=== PATIENT | female | born 1975 | race Caucasian/White ===

== ENCOUNTER 2023-12-31 15:21 | Emergency (ER) | payer MEDICAID, SELFPAY ==
--- NOTE | 2023-12-31 15:32 | XR_ITS ---
FINAL REPORT CLINICAL HISTORY: 2nd toe injury; today FINDINGS: RIGHT FOOT 3 views of the right foot were obtained. There a questionable nondisplaced fracture of the distal second proximal phalanx. Visualized joint spaces are normally aligned. Soft tissues are unremarkable. IMPRESSION: Questionable nondisplaced fracture of the distal second proximal phalanx. Reviewed, Interpreted and Dictated by Burke Menjivar MD Transcribed by Jane Soliz Authenticated and [facility]
[2023-12-31 15:36] VITALS: BP 180/114; PULSE 90; RESP 16; TEMP 36.9; O2SAT 98; BMI 30.4
--- NOTE | 2023-12-31 15:36 | HMH.EDGENADL ---
Discharge Plan Disposition Patient Disposition: Home, Self-Care Condition: Fair Prescriptions Prescriptions: No Action Ozempic 1 mg/dose (4 mg/3 mL) Pen Injector 1 mg SQ WEEKLY Referrals Follow up/Referrals: Rachelle Stanford APRN [Primary Care Provider] - See instructions Jaclyn Ramirez DPM [Staff Physician] - See instructions Activity Restrictions/Add. Instructions Additional Instructions/Restrictions: You were evaluated in the ER today for toe pain. Your toe has a small nondisplaced fracture or broken bone. Please follow up with podiatry. Take tylenol and ibuprofen at home as needed for pain. Ice and elevate your foot to reduce swelling. Leave bossman tape in place and use your hard sole shoe when walking. Clinical Impressions Clinical Impression: Closed fracture of phalanx of right second toe Stand Alone Forms Stand Alone Forms: Work/School Release Instructions Patient Instructions: DI for Toe Fracture Print Language Print Language: Cymro Discharge ED Provider: Rachelle Arceo General Adult HPI General Chief complaint: Extremity Injury, Lower Stated complaint: AO 12/30 right second toe swelling bruising pain Time Seen by Provider: 12/31/23 15:31 History of Present Illness HPI narrative: This patient is a 48-year-old female with a history of type 2 diabetes and peripheral neuropathy presenting to the emergency department for evaluation with concern for right second toe pain. She states that she works at a daycare, and this morning she tripped, stubbing her right foot second toe. She initially did not note how bad it was, but then she looked at her toe this afternoon and noticed that it was black and blue. She states it has been hurting, and she took some Tylenol around noon. No other concerns or complaints noted at this time. Related Data Home Medications ?Medication ?Instructions ?Recorded ?Confirmed semaglutide 1 mg/dose (4 mg/3 mL) 1 mg SQ WEEKLY 12/31/23 12/31/23 subcutaneous pen injector (Ozempic) Allergies Allergy/AdvReac Type Severity Reaction Status Date / Time erythromycin base Allergy Verified 12/31/23 15:34 lisinopril Allergy Verified 12/31/23 15:34 sulfamethoxazole Allergy Verified 12/31/23 15:34 [From Bactrim] trimethoprim [From Bactrim] Allergy Verified 12/31/23 15:34 [facility] Disclaimer: The information contained in this section may have been updated after the patient was seen, as this information can be updated by other users. Medical History Diabetes mellitus type 2 in nonobese Neuropathy Surgical History History of hysterectomy History of cholecystectomy Family History Other No significant family history Social History Smoking Status: Former smoker alcohol intake: never current occupational status: employed Travel in the last 8 weeks: None ROS Obtained: Yes All systems reviewed & no additional complaints except as documented Physical Exam General General appearance: alert and in no apparent distress Head Head exam: atraumatic and normocephalic Eye Eye exam: Present normal appearance, PERRL and EOMI ENT ENT exam: Present normal exam, normal oropharynx, mucous membranes moist and normal external ear exam Neck Neck exam: Present normal inspection, full ROM and trachea midline; Absent tenderness Chest Chest inspection: Present normal inspection and symmetric chest wall rise; Absent tenderness Respiratory Respiratory exam: Present normal lung sounds bilaterally; Absent respiratory distress, wheezes, stridor or accessory muscle use Cardiovascular Cardiovascular exam: Present regular rate and normal rhythm Abdominal Exam Abdominal exam: Present soft; Absent distention, tenderness or guarding Extremities Exam Extremities exam: Present full ROM, tenderness (R 2nd toe) and normal capillary refill; Absent edema Expanded Lower Extremity Exam Right: Foot/toe exam: Present tenderness Top foot image: 1. bruising, TTP; NVI distally Back Exam Back exam: Present normal inspection and full ROM; Absent tenderness Neurological Exam Neurological exam: Present alert, oriented X3, CN II-XII intact and normal gait; Absent motor sensory deficit Psychiatric Psychiatric exam: Present normal affect and normal mood Skin Skin exam: Present warm and dry Medical Decision Making Medical Records Medical records reviewed: Yes I reviewed the patient's medical records. Harpreet Inquiry Pt receiving controlled substance: No Vital Signs: 12/31/23 15:36 12/31/23 16:09 12/31/23 16:58 Temperature 98.5 F 98.5 F Temperature Source Oral Pulse Rate 103 H 97 H Pulse Rate [Right Brachial] 90 Respiratory Rate 16 18 Blood Pressure 141/114 H 146/99 H Blood Pressure [Right Arm] 180/114 H Blood Pressure Mean [Right Arm] 136 Blood Pressure Source Automatic Cuff Blood Pressure Source [Right Arm] Automatic Cuff Blood Pressure Position Sitting Blood Pressure Position [Right Arm] Sitting 02 Sat by Pulse Oximetry 98 97 Oxygen Delivery Method Room Air Room Air Room Air Lab Data Lab results reviewed: Yes I reviewed the patient's lab results. Orders (Tests/Meds): ED MEDICATIONS Discontinued Medications Generic Name Dose Route Start Last Admin Trade Name Lucia PRN Reason Stop Dose Admin Acetaminophen 1,000 mg 12/31/23 15:34 12/31/23 15:37 Acetaminophen 500mg Tab PO 12/31/23 15:35 1,000 mg ONCE ONE Administration ORDERS Category Date Time Status Foot XR right minimum 3 views [XR foot RT min 3V] Stat Exams 12/31/23 15:32 Taken Medical Decision Narrative: In summary, this patient is a 48-year-old female presenting to the Emergency Department for evaluation of right second toe injury. Differential diagnoses considered include but are not limited to fracture, contusion, strain/sprain. Ruling out the most morbid conditions drove assessment. It should be noted patient's history includes diabetes and peripheral neuropathy which may or may not be at goal therapy. This complicates all aspects of care by increasing patient's risk for morbidity. On exam, the patient is well-appearing. She has bruising and tenderness to her right second toe but no open wounds. Neurovascularly intact. Workup included x-rays of the right foot. She was given oral Tylenol for pain. I independently interpreted x-ray prior to the radiologist read and noted subtle fracture of the distal phalanx of the right second toe. Please see their read for final interpretation. At this time, I feel the patient is appropriate for discharge home with bossman taping and [place] shoe. This was necessary for immobilization of fracture and control of pain. She was given instructions for follow-up with podiatry, as she is high risk for poor healing in the setting of diabetes and neuropathy. She was given instructions for supportive management and strict return precautions. She was discharged after all questions were answered Critical Care Critical Care Time Critical Care Time: No
[2023-12-31] MEDS: ACETAMINOPHEN 500MG TAB 1000 MG PO (15:37)
[2023-12-31 16:09] VITALS: BP 141/114; PULSE 103; O2SAT 97
[2023-12-31 16:58] VITALS: BP 146/99; PULSE 97; RESP 18; TEMP 36.9; O2SAT 97
== END 2023-12-31 16:59 | disposition home or self-care (01) ==
PROVIDERS: Emergency Provider Emergency Medicine; PCP Nurse Practitioner Family
DX: S92.501A Displaced unspecified fracture of right lesser toe(s), initial encounter for closed fracture (principal); W22.8XXA Striking against or struck by other objects, initial encounter
CPT/HCPCS: 73630; 99283

== ENCOUNTER 2024-02-04 13:26 | Outpatient (CLI) | payer OTHER, SELFPAY ==
--- NOTE | 2024-02-04 13:32 | XR_ITS ---
FINAL REPORT CLINICAL HISTORY: Questionable fracture x 1 month ago COMPARISON: 12/31/2023 FINDINGS: RIGHT FOOT Three views show periosteal reaction and callus formation in the second proximal phalanx. This is presumably related to a healed fracture although no fracture line is evident. If there is concern for infection, osteomyelitis would be included in the differential. No acute fracture is seen. IMPRESSION: Periosteal presumably due to a healed fracture in the second proximal phalanx. Correlate with clinical history. Reviewed, Interpreted and Dictated by Caleb Fenton MD Transcribed by Lidia Garcia Authenticated and [facility]
== END 2024-02-04 23:59 | disposition home or self-care (01) ==
LOC: RAD 13:27
PROVIDERS: PCP Nurse Practitioner Family; Visit Provider Podiatrist
DX: M79.671 Pain in right foot (principal)
CPT/HCPCS: 73630